=== PATIENT | male | born 1970 | race Caucasian/White ===

== ENCOUNTER 2019-12-07 01:25 | Emergency (ER) | payer BC ==
[~2019-12-07] VITALS: Ht 185.4 cm; Wt 106.6 kg
[2019-12-07 01:34] VITALS: Ht 185.4 cm; Wt 106.6 kg
[2019-12-07 02:03] LABS: PLATELET COUNT 259 x10^3mcL (130-400); RED CELL DISTRIBUTION WIDTH 12.7 % (11.5-14.5)
[2019-12-07 02:17] LABS: CALCIUM 8.2 mg/dL (8.5-10.1); CARBON DIOXIDE 25.9 mmol/L (21-32); CHLORIDE SERUM 99 mmol/L (98-107); CREATININE SERUM 1.2 mg/dL (0.7-1.3); GFR1 > 60 mL/min; GLUCOSE SERUM 139 mg/dL (74-106); POTASSIUM SERUM 3.4 mmol/L (3.5-5.1); SODIUM SERUM 135 mmol/L (136-145)
[2019-12-07 02:24] LABS: ALBUMIN 3.9 g/dL (3.4-5.0); ALKALINE PHOSPHATASE 80 U/L (46-116); ALT/SGPT 35 U/L (16-63); AST/SGOT 20 U/L (15-37); BILIRUBIN TOTAL 0.7 mg/dL (0.20-1.00); MAGNESIUM 1.9 mg/dL (1.8-2.4); TOTAL PROTEIN, SERUM 6.5 g/dL (6.4-8.2)
[2019-12-07 06:55] VITALS: BP 130/64
== END 2019-12-07 06:40 | disposition home or self-care (01) ==
LOC: ED 01:25
PROVIDERS: Student in an Organized Health Care Education/Training Program
DX: S01.01XA Laceration without foreign body of scalp, initial encounter (principal); I10 Essential (primary) hypertension; R55 Syncope and collapse; F10.129 Alcohol abuse with intoxication, unspecified; W18.09XA Striking against other object with subsequent fall, initial encounter; Y93.89 Activity, other specified; Y92.89 Other specified places as the place of occurrence of the external cause; Y99.8 Other external cause status
CPT/HCPCS: J2001